=== PATIENT | female | born 2000 | race Two or more races ===

== ENCOUNTER 2025-01-19 15:59 | Emergency (ER) | payer OTHER ==
[~2025-01-19] VITALS: Ht 162.6 cm; Wt 56.8 kg
[2025-01-19 16:02] VITALS: BP 113/72; PULSE 90; RESP 17; TEMP 98.5; O2SAT 100
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
[2025-01-19] MEDS: KETOROLAC TROMETH 30 MG/ML 1ML VIAL IM ONE (17:08)
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
[2025-01-19] MEDS ORDERED: IBU600T PO (18:06)
== END 2025-01-19 18:10 | disposition home or self-care (01) ==
LOC: ER 15:59
DX: S30.810A Abrasion of lower back and pelvis, initial encounter (principal); S20.91XA Abrasion of unspecified parts of thorax, initial encounter; S40.019A Contusion of unspecified shoulder, initial encounter; V43.52XA Car driver injured in collision with other type car in traffic accident, initial encounter; Y93.89 Activity, other specified; Y92.410 Unspecified street and highway as the place of occurrence of the external cause; Y99.8 Other external cause status
CPT/HCPCS: 72070; 72170; 73000